=== PATIENT | male | born 1990 | race Caucasian/White ===

== ENCOUNTER 2016-07-16 10:26 | Inpatient (IN) | payer OTHER ==
--- NOTE | ~2016-07-16 | PN ---
Unit #: [id number] #: [id number] Patient: NAM MALAVE [id number] [facility] [address] [place] [address] [id number] MR#: [id number] NAME: NAM MALAVE ROOM: [facility] Age: 26 Sex: M Admission Date: 07/16/2016 : 1990 Attending Physician: Jailyn Bone M.D. Admitting Physician: Jailyn Bone M.D. Primary Care Physician: Generic Doctor Not In System [facility] PROGRESS NOTES DATE OF SERVICE 07/19/2016 DISCUSSION Mr. Malave is a 26-year-old white male who was seen today. Chart was reviewed and case was discussed with staff. He remains withdrawn and seclusive to himself. He has been cooperative with treatment recommendations and has been taking the medications and tolerating them fairly well. MENTAL STATUS EXAMINATION Young white male who is casually dressed with fair personal hygiene, appears to be in no acute distress or discomfort. The patient was awake and alert with intact orientation. His mood is anxious with congruent affect. He denies any suicidal or homicidal ideations. His insight and judgment remain slightly impaired. TREATMENT PLAN 1. We will continue him on his current medications and treatment protocol. We will monitor his response to the medications and make further adjustments as needed. 2. We will continue to follow up. Dictated by... Eldon Girard/jrg TD: 07/20/2016 07:27 JOB #: [id number] [facility] PROGRESS NOTES Page 1 of 1 X Jailyn Bone MD PROGRESS NOTE
--- NOTE | ~2016-07-16 | HP ---
Unit #: [id number] #: [id number] Patient: DINESH RAO [id number] [place] [address] [id number] I MR#: [id number] NAME: DINESH RAO ROOM: P259 Age: 26 Sex: M Admission Date: 07/16/2016 : 1990 Attending Physician: Jailyn Bone M.D. Admitting Physician: Jailyn Bone M.D. Primary Care Physician: Generic Doctor Not In System HISTORY AND PHYSICAL HISTORY OF PRESENT ILLNESS Dinesh is a 26 year old admitted to [address] [place] [address] because of his belligerent out of control behavior and after verbalizing wanting to hurt his family when he is angry. PAST MEDICAL HISTORY 1. Obesity 2. High blood pressure PAST SURGICAL HISTORY Nothing reported ALLERGIES No known drug allergies. SOCIAL HISTORY She denies cigarettes, alcohol and illicit drug use. FAMILY HISTORY Medically noncontributory. REVIEW OF SYSTEMS He does not answer questions appropriately. He is angry and refuses to answer. There has been no reports of nausea, vomiting or diarrhea. CURRENT MEDICATIONS 1. Risperdal 1 mg q.h.s. 2. Milk of Magnesia p.r.n. 3. Maalox p.r.n. 4. Tylenol p.r.n. 5. Singulair 10 mg q day 6. Claritin D 1 tab q day PHYSICAL EXAMINATION GENERAL: Alert, obese, in no apparent distress. VITAL SIGNS: Blood pressure 140/90, heart rate 92, respirations 16, temperature 98.6. WEIGHT: 190 pounds. HEIGHT: 5'6". SKIN: Warm and dry without rash or lesion. HEENT: Normocephalic. TMs not viewed. Oral and nasal passages clear. Conjunctivae clear. Pupils equal, round and reactive to light and Unit #: [id number] #: [id number] Patient: DINESH RAO accommodation. Extraocular movements intact. NECK: Supple without lymphadenopathy or thyromegaly. HEART: Regular rate and rhythm without murmur. LUNGS: Clear. ABDOMEN: Soft, nontender. : Not done. EXTREMITIES: No evidence of cyanosis, clubbing or edema. Moves all extremities without focal deficit. NEUROLOGICAL: Unable to complete extended exam. He does move all extremities without focal deficit. Hand rn urgent care is equal and gait is normal. IMPRESSION Psychiatric admission RECOMMENDATIONS PSYCHIATRIC: Per psychiatrist. MEDICAL: I see no contraindications to participating in facility's activities. MEDICAL PROGNOSIS Good. MEDICAL CONDITION Stable. Dictated by... Rina Cloeman P.A.-C. for Eldon Pinto/josé luis TD: 07/17/2016 01:55 JOB #: [id number] HISTORY AND PHYSICAL Page 1 of 1 X Rina Coleman X HISTORY AND PHYSICAL
--- NOTE | ~2016-07-16 | DS ---
Unit #: [id number] #: [id number] Patient: NAM MALAVE [id number] [place] [address] [id number] MR#: [id number] NAME: NAM MALAVE ROOM: [facility] Age: 26 Sex: M Admission Date: 07/16/2016 : 1990 Discharge Date: 07/21/2016 Attending Physician: Jailyn Bone M.D. Primary Care Physician: Generic Doctor Not In System DISCHARGE SUMMARY IDENTIFYING DATA Mr. Malave is a 26-year-old single white male who is a resident of [place], [place] and was stepped up to the inpatient unit from the intensive outpatient treatment program. DISCHARGE DIAGNOSES Psychiatric: Bipolar disorder, most recent episode manic with psychosis. Medical: Hypertension. Stressors: Moderate psychosocial stressors. HISTORY OF PRESENT ILLNESS Please see initial psychiatric evaluation for details. PAST PSYCHIATRIC HISTORY Please see initial psychiatric evaluation for details. PAST MEDICAL HISTORY Please see initial psychiatric evaluation for details. HOSPITAL COURSE The patient was admitted to the adult psychiatric unit at [facility] and was oriented to the hospital environment. Routine p.r.n. medications were initiated, and he was started back on his home medications and medications were adjusted and he was closely monitored. Risperdal was increased to 1 mg b.i.d. with good tolerability and therapeutic response followed by which, it was decided that he will be kept on his current medications and will be discharged home and will continue treatment on an outpatient basis at [facility]. DISCHARGE MEDICATIONS Risperdal 1 mg b.i.d. for depression and Zestril 10 mg a day for hypertension. DISCHARGE CONDITION Stable. PROGNOSIS Fair. Dictated by... Jailyn Bone M.D. IAA/modl Unit #: [id number] #: [id number] Patient: NAM MALAVE TD: 07/21/2016 07:51 JOB #: [id number] DISCHARGE SUMMARY Page 1 of 1 X Jailyn Bone MD X DISCHARGE SUMMARY
--- NOTE | ~2016-07-16 | PN ---
Unit #: [id number] #: [id number] Patient: NAM MALAVE [id number] [facility] [address] [place] [address] [id number] I MR#: [id number] NAME: NAM MALAVE ROOM: [facility]5 Age: 26 Sex: M Admission Date: 07/16/2016 : 1990 Attending Physician: Jailyn Bone M.D. Admitting Physician: Jailyn Bone M.D. Primary Care Physician: Generic Doctor Not In System [facility] PROGRESS NOTES DATE 07/20/2016 DISCUSSION Mr. Malave is a 26-year-old, white male who was seen today and chart was reviewed and case was discussed with the staff. He has been anxious, withdrawn rather seclusive to himself. Meanwhile, he has been cooperative with the treatment recommendations and has been taking the medication and tolerating them fairly well with no reported side effects. MENTAL STATUS EXAM Young white male who was casually dressed with fair personal hygiene, appears to be in no acute distress or discomfort. He was awake and alert on interaction with intact orientation. His mood was anxious with congruent affect. He denies any suicidal or homicidal ideation. Also, denies any auditory or visual hallucinations. His insight and judgement remains slightly impaired. TREATMENT PLAN 1. We will continue him on his current medications and treatment protocol. We will monitor his response to the medication and make further adjustments as needed. 2. We will continue to follow up. Dictated by... Eldon Girard/josé luis TD: 07/21/2016 04:15 JOB #: [id number] Unit #: [id number] #: [id number] Patient: NAM MALAVE PROGRESS NOTES Page 1 of 1 X Jailyn Bone MD X PROGRESS NOTE
--- NOTE | ~2016-07-16 | PN ---
Unit #: [id number] #: [id number] Patient: NAM MALAVE [id number] [facility] [address] [place] [address] [id number] MR#: [id number] NAME: NAM MALAVE ROOM: [facility]5 Age: 26 Sex: M Admission Date: 07/16/2016 : 1990 Attending Physician: Jailyn Bone M.D. Admitting Physician: Jailyn Bone M.D. Primary Care Physician: Generic Doctor Not In System [facility] PROGRESS NOTES DATE OF SERVICE: 07/18/2016 SUBJECTIVE Mr. Malave is a 26-year-old white male, who was seen today and chart was reviewed, and case was discussed with the staff. cooperative with treatment recommendations, and has been taking the medications and tolerating them fairly well with no reported side effects. MENTAL STATUS EXAMINATION Young white male, who was casually dressed with fair personal hygiene, appears to be in no acute distress or discomfort. He was awake and alert on interaction with intact orientation. His mood was anxious with a congruent affect. He denies any suicidal or homicidal ideation. His insight and judgment remain slightly impaired. TREATMENT AND PLAN 1. We will continue his current medications and treatment protocol, and we will monitor his response to the medications and make further adjustments as needed. 2. We will continue to follow up. Dictated by... Jailyn Bone M.D. ORALIA/lisa TD: 07/19/2016 13:48 JOB #: [id number] [facility] PROGRESS NOTES Page 1 of 1 X Jailyn Bone MD PROGRESS NOTE
--- NOTE | ~2016-07-16 | PN ---
Unit #: [id number] #: [id number] Patient: NAM MALAVE [id number] [facility] [address] [place] [address] [id number] MR#: [id number] NAME: NAM MALAVE ROOM: P259 Age: 26 Sex: M Admission Date: 07/16/2016 : 1990 Attending Physician: Jailyn Bone M.D. Admitting Physician: Jailyn Bone M.D. Primary Care Physician: Generic Doctor Not In System [facility] PROGRESS NOTES DATE OF SERVICE 07/16/2016 DISCUSSION Mr. Malave is a 26-year-old white male who was seen today. Chart was reviewed and case was discussed with the staff. He has been doing fairly well though has been having some increasing anger and frustration, and agitation and started decompensating since he has been in a group this morning stating that he has been having homicidal thoughts and did fill out this morning inventory with homicidal thoughts and stated that he has been getting frustrated and feels he is going to end up hurting someone. Therefore, recommendation for the patient to be stepped to the inpatient level of care would be made. The patient will be transferred to [facility]. Dictated by... Jailyn Bone M.D. IAA/bzg TD: 07/16/2016 14:07 JOB #: [id number] [facility] PROGRESS NOTES Page 1 of 1 X Jailyn Bone MD X PROGRESS NOTE
[2016-07-17 09:49] LABS: BASOPHIL# 0.1 X10e3 (0-0.3); EOSINOPHIL# 0.1 X10e3 (0-0.7); EOSINOPHIL% 1.4 % (0.0-7.0); HEMATOCRIT 48.9 % (38.0-50.0); HEMOGLOBIN 16.5 gm/dL (13.0-16.0); LYMPHOCYTE# 2.2 X10e3 (1.0-3.5); LYMPHOCYTE% 34.4 % (17.0-45.0); MEAN CELL VOLUME 85.6 FL (83-96); MEAN CORPUSCULAR HEMOGLOBIN 28.8 PG (28-34); MEAN CORPUSCULAR HGB CONC 33.7 g/dL (30-36); MEAN PLATELET VOLUME 9.5 FL (6.5-11.5); MONOCYTE# 0.6 X10e3 (0-1.0); MONOCYTE% 9.2 % (3.0-12.0); NEUTROPHIL# 3.4 X10e3 (1.5-7.1); PLATELET COUNT 203 X10e3 (140-420); RED BLOOD COUNT 5.71 X10e (3.90-5.60); RED CELL DISTRIBUTION WIDTH 13.5 % (11.0-15.5); WHITE BLOOD COUNT 6.4 X10e3 (4.0-10.5)
[2016-07-17 10:02] LABS: DIFF IND NO
[2016-07-17 10:29] LABS: ALBUMIN SERUM 4.3 g/dL (3.5-5.0); BILIRUBIN,TOTAL 0.8 mg/dL (0.2-2.0); CALCIUM SERUM 9.5 mg/dL (8.4-10.2); POTASSIUM 4.6 mmol/L (3.5-5.1); PROTEIN TOTAL SERUM 6.8 g/dL (6.0-8.3)
[2016-07-18 12:12] LABS: URINE APPEARANCE CLEAR; URINE BILIRUBIN NEG (NEG); URINE BLOOD NEG (NEG); URINE COLOR YELLOW; URINE GLUCOSE NEG (NEG); URINE KETONE NEG (NEG); URINE LEUKOCYTE ESTERASE NEG (NEG); URINE NITRATE NEG (NEG); URINE PH 5.5 (5-8); URINE PROTEIN NEG (NEG); URINE SPECIFIC GRAVITY 1.019 (1.003-1.035); URINE UROBILINOGEN 0.2 MG/DL (NEG)
[2016-07-18 13:32] LABS: AMPHETAMINE NEG (NEG); BARBITURATES NEG (NEG); BENZODIAZEPINES NEG (NEG); COCAINE NEG (NEG); MARIJUANA NEG (NEG); OPIATES NEG (NEG); TRICYCLIC ANTIDEPRESSANTS NEG (NEG); U METHADONE NEG (NEG)
== END 2016-07-21 10:45 | DRG 885 ==
LOC: P2L 10:26 → P1S 07-19 18:26
PROVIDERS: Psychiatry & Neurology Psychiatry
DX: F31.32 Bipolar disorder, current episode depressed, moderate (principal); I10 Essential (primary) hypertension; F29 Unspecified psychosis not due to a substance or known physiological condition; E66.9 Obesity, unspecified; F31.10 Bipolar disorder, current episode manic without psychotic features, unspecified
CPT/HCPCS: 80053; 80307; 81003; 85025